=== PATIENT | female | born 1950 | race Caucasian/White ===

== ENCOUNTER 2023-10-05 10:32 | Emergency (ER) | payer SELFPAY ==
[~2023-10-05] VITALS: Ht 167.6 cm; Wt 70.0 kg
[2023-10-05 10:36] VITALS: O2SAT 96
[2023-10-05 11:15] LABS: BASOPHILS % 0.6 % (0.0-2.0); EOSINOPHILS % 0.1 % (0.0-5.0); HEMATOCRIT. 40.9 % (36.0-48.0); HEMOGLOBIN. 13.2 g/dL (12.0-16.0); LYMPHOCYTES % 10.4 % (20.0-50.0); MEAN CORPUSCULAR HEMOGLOBIN 28.3 pg (28.0-32.0); MEAN CORPUSCULAR HGB CONC 32.2 g/dL (31.0-37.0); MEAN PLATELET VOLUME 8.9 fl (7.4-10.4); MONOCYTES % 7.3 % (2.0-8.0); NEUTROPHILS % 81.6 % (40.0-76.0); PLATELET 221 x1000/uL (130-400); RED BLOOD CELL COUNT 4.65 mill/uL (4.2-5.4); RED CELL DISTRIBUTION WIDTH 13.5 % (11.6-14.6); WHITE BLOOD COUNT 9.4 x1000/uL (4.5-11.0)
[2023-10-05 11:34] LABS: CHLORIDE 106 mEq/L (98-107)
[2023-10-05 11:35] LABS: CARBON DIOXIDE 28 mEq/L (21-32); SODIUM 139 mEq/L (136-145)
[2023-10-05 11:36] LABS: CALCIUM 9.6 mg/dL (8.7-10.4)
[2023-10-05 11:40] LABS: CREATININE 0.6 mg/dL (0.6-1.0); GLUCOSE 106 mg/dL (70-105)
[2023-10-05 11:41] LABS: UREA NITROGEN BLOOD 14 mg/dL (9-23)
[2023-10-05] MEDS ORDERED: IOHEXOL-350 100 ML BOTTLE ONE (15:19)
[2023-10-05] MEDS ORDERED: ALBU6.7H15 INH (15:51)
[2023-10-05] MEDS ORDERED: P20 MT (15:51)
[2023-10-05 17:15] VITALS: BP 144/81; PULSE 78; RESP 16; TEMP 98.3
== END 2023-10-05 17:15 | disposition home or self-care (01) ==
LOC: ER 10:45
DX: J90 Pleural effusion, not elsewhere classified (principal); J44.9 Chronic obstructive pulmonary disease, unspecified; I48.91 Unspecified atrial fibrillation; Z98.890 Other specified postprocedural states
CPT/HCPCS: 99285; 71275; 71045; 80048; 83880; 85025; 85379; 36415; Q9967